=== PATIENT | male | born 1975 | race Caucasian/White ===

== ENCOUNTER 2016-10-07 02:29 | Emergency (ER) | payer MEDICAID ==
[~2016-10-07] VITALS: Ht 175.3 cm; Wt 72.6 kg
[~2016-10-07 02:29] MED LIST: IBUPROFEN600 MG ORAL
[2016-10-07 02:42] VITALS: BP 133/81
[2016-10-07] MEDS ORDERED: PERMETHRIN60 GM TOPIC (02:44)
[2016-10-07] MEDS ORDERED: HYDROXYZINE HCL25 M1 PO (02:44)
[2016-10-07] MEDS ORDERED: HYDROCORTISONE28 G2 TP (02:44)
[2016-10-07] MEDS ORDERED: ALPRAZolam 0.5mg tab ORAL ONE (02:45)
[2016-10-07 02:50] VITALS: BP 137/79
--- NOTE | 2016-10-07 05:10 | Emergency Room Report ---
History of Present Illness General Chief Complaint: Skin Rash/Abscess Source: Patient Present Illness HPI Patient is a 40-year-old male who presented after an increase right-sided shoulder rash. The patient stated he been staying at a location which may of had bedbugs. Patient had itchy rash to his right upper extremity. Patient also states that he normally takes Xanax and had been feeling increasingly anxious. He denied any fever. He denied any other locations of discomfort. Allergies: Coded Allergies: PENICILLINS (Unverified Allergy, Unknown, 10/07/16) Uncoded Allergies: PENICILLIN (Allergy, Unknown, 02/03/16) Patient History Past Medical History: see triage record Reviewed Nursing Documentation: PMH: Agreed, PSxH: Agreed Nursing Documentation-PMH Past Medical History: No History, Except For Review of Systems All Other Systems: negative except mentioned in HPI Physical Exam Vital Signs Date Time Temp Pulse Resp B/P Pulse Ox O2 Delivery O2 Flow Rate FiO2 10/07/16 02:37 97.0 105 16 133/81 98 Room Air General Appearance: well appearing, no apparent distress, alert, GCS 15 Head: normocephalic, atraumatic ENT: hearing grossly normal, normal voice Neck: full range of motion, supple Respiratory: no respiratory distress, speaking full sentences Musculoskeletal: no calf tenderness Neurologic: normal inspection, alert, oriented x3, responsive, normal gait Psychiatric: mood/affect normal Skin: other - multiple patches with slight erythema, to back and right shoulder area Medical Decision Making Diagnostic Impression: Primary Impression: Bed bug bite ER Course Patient presented for skin rash. Differential diagnosis included was not limited to Townsend-Brian syndrome, urticaria, erythema multiforme, scabies, contact dermatitis. Patient's benign exam and does not appear to require any further imaging or laboratory testing at this time. The patient was given Xanax orally for anxiety. He was given a prescription for anti-itching medications Last Vital Signs Date Time Temp Pulse Resp B/P Pulse Ox O2 Delivery O2 Flow Rate FiO2 10/07/16 02:50 97.0 99 18 137/79 99 Room Air Status: improved Disposition: HOME, SELF-CARE Condition: Stable Scripts Permethrin* (ELIMITE*) 60 Gm Cream..g. 1 APPLIC TOPIC ONCE, #60 GM 0 Refills Apply cream from head to toe; leave on for 8-14 hours before washing off with water; may reapply in 1 week if live mites appear. Prov: Kahlil Milan 10/07/16 Hydrocortisone Acetate 1% Onit (HYDROCORTISONE 1% OINT) Y Oint 28 GM TP TWICE A DAY, #28 GM Prov: Kahlil Milan 10/07/16 Hydroxyzine Hcl (HYDROXYZINE HCL) 25 Mg Tablet 25 MG PO EVERY 6 HOURS for Itching, #20 TAB Prov: Kahlil Milan 10/07/16 Referrals: NOT CHOSEN IPA/,REFERRING (PCP) Patient Instructions: Chris [id number]-Ihvo Kahlil Milan Oct 07, 2016 05:10
== END 2016-10-07 02:50 | disposition home or self-care (01) ==
LOC: EMR 02:45
DX: S40.261A Insect bite (nonvenomous) of right shoulder, initial encounter (principal); S30.860A Insect bite (nonvenomous) of lower back and pelvis, initial encounter; W57.XXXA Bitten or stung by nonvenomous insect and other nonvenomous arthropods, initial encounter; Y92.89 Other specified places as the place of occurrence of the external cause; Z88.0 Allergy status to penicillin
CPT/HCPCS: 99284